=== PATIENT | male | born 1975 | race Two or more races ===

== ENCOUNTER 2016-05-10 23:06 | Emergency (ER) | payer OTHER ==
[2016-05-10] MEDS ORDERED: MAALOX/LIDO2%VISC/SIMETHICONE 40 ML BOT ONE (23:52)
[2016-05-11] MEDS ORDERED: ONDANSETRON 4 MG/2ML 2 ML VIAL ONE ×2 (00:19→01:23)
[2016-05-11 00:25] LABS: ABSOLUTE NEUTROPHIL COUNT 5.6 K/mm3 (1.8-7.7); BASO % 0.4 % (0.2-1.0); EOS # 0.3 (0.0-0.5); EOS % 3.6 % (0.9-2.9); HEMATOCRIT 42.3 % (32.0-52.0); HEMOGLOBIN 14.6 gm/l (14.0-18.0); IMM NEUT% 0.3 % (0-1); LYMPH # 2.8 (1.0-4.8); LYMPH % 29.6 % (15-45); MEAN CELL VOLUME 87.2 fl (80.0-94.0); MEAN CORPUSCULAR HEMOGLOBIN 30.1 pg (27.0-31.0); MEAN CORPUSCULAR HGB CONC 34.5 g/dl (33.0-37.0); MEAN PLATELET VOLUME 9.1 fl (7.4-10.4); MONO # 0.6 (0.0-0.8); MONO % 6.6 % (4-12); NEUT % 59.5 % (43-75); PLATELET COUNT 302 K/mm3 (130-400); RED CELL DISTRIBUTION WIDTH 11.8 % (11.5-14.5)
[2016-05-11 00:38] LABS: ALB/GLOB RATIO 1.3 (>1.0); ALBUMIN 4.1 gm/dL (3.5-5.7); CALCIUM 9.4 mg/dL (8.6-10.3)
[2016-05-11] MEDS ORDERED: HYDROMORPHONE HCL 1 MG/ML SYRINGE ONE (00:43)
[2016-05-11] MEDS ORDERED: LACTATED RINGERS 1,000 ML ONE (00:49)
[2016-05-11] MEDS ORDERED: HYDROMORPHONE HCL 0.5 MG/0.5 ML SYRINGE ONE ×2 (01:23→01:54)
[2016-05-11] MEDS ORDERED: KETOROLAC TROMETHAMINE 30 MG/ML 1 ML VIAL ONE (01:57)
--- NOTE | 2016-05-11 07:51 | US ---
EXAMINATION: Limited gallbladder ultrasound examination was performed. CLINICAL INDICATION: Right upper quadrant pain. COMPARISON: Abdomen ultrasound dated 11/05/2009 FINDINGS: In the visualized segments the liver there is fatty infiltration with relative sparing adjacent to the gallbladder. Gallbladder: 8.2 cm in length. Cholelithiasis: Noted. There are 2 mobile stones largest measures 2.2 cm in diameter. Gallbladder wall thickness: 1 millimeters. Pericholecystic fluid: Absent Common bile duct:Not dilated and measures 5.5 millimeters. Sonographic Erazo's sign: Elicited. IMPRESSION: 1. Cholelithiasis currently without evidence of gallbladder wall thickening or edema. Please note a sonographic Erazo sign was elicited. Continued clinical evaluation and follow-up should be considered. 2. Fatty infiltration liver. Findings were communicated by [facility] to the emergency department at: 1:57 AM 05/11/2016
== END 2016-05-11 03:06 | disposition home or self-care (01) ==
LOC: ED 23:06
DX: K80.20 Calculus of gallbladder without cholecystitis without obstruction (principal)
CPT/HCPCS: 83690; 85025; 80053; 76705; 93005; J1170 ×3; A9270; J1885; J2405; J7120

== ENCOUNTER 2016-05-14 13:09 | Day surgery (SDC) | payer OTHER ==
[~2016-05-14 13:09] MED LIST: IV START KIT ONE; LACTATED RINGERS 1,000 ML ONE
[2016-05-14] MEDS ORDERED: IOPAMIDOL 370 (76%) 100 ML VIAL IV ONE (13:10)
[2016-05-14] MEDS ORDERED: SODIUM CHLORIDE 0.9% 50 ML ONE (13:11)
[2016-05-14] MEDS ORDERED: IOPAMIDOL 300 (61%) 30 ML SDV ONE (13:11)
[2016-05-14] MEDS ORDERED: LIDOCAINE 1%/EPI 1:100,000 (MULTI DOSE) 30 ML VIAL ONE (13:11)
[2016-05-14] MEDS ORDERED: ROCURONIUM BROMIDE 10 MG/ML DOSE IV ONE (13:14)
[2016-05-14] MEDS ORDERED: LIDOCAINE 2% (MULTI DOSE) 10 ML VIAL ONE (13:14)
[2016-05-14] MEDS ORDERED: SUCCINYLCHOLINE CHL 20 MG/ML DOSE ONE (13:14)
[2016-05-14] MEDS ORDERED: FENTANYL 250 MCG/5 ML AMP ONE (13:14)
[2016-05-14] MEDS ORDERED: DEXAMETHASONE SOD PHOS 4 MG/1 ML VIAL ONE (13:14)
[2016-05-14] MEDS ORDERED: PROPOFOL 20 ML IV ONE ×2 (13:14→13:15)
[2016-05-14] MEDS ORDERED: ONDANSETRON 4 MG/2ML 2 ML VIAL ONE (13:14)
[2016-05-14] MEDS ORDERED: PHENYLEPHRINE 10 MG/1 ML (1%) VIAL ONE (13:16)
[2016-05-14] MEDS ORDERED: SODIUM CHLORIDE 0.9% FLUSH 10 ML ONE ×3 (13:17→21:49)
[2016-05-14] MEDS ORDERED: MIDAZOLAM HCL 1 MG/ML 2ML VIAL ONE (13:24)
[2016-05-14] MEDS ORDERED: LACTATED RINGERS 1,000 ML IV SCH ×2 (13:49→15:00)
[2016-05-14] MEDS ORDERED: LIDOCAINE 1% 2 ML VIAL ID PRN (13:49)
[2016-05-14] MEDS ORDERED: METRONIDAZOLE 500 MG/NS 100 ML 500 MG in Premix (NS) 100 ml 1 EACH IV PRN (13:49)
[2016-05-14] MEDS ORDERED: CEFUROXIME SODIUM 1.5 GRAM 1.5 G in Premix (Water) 50 ml 1 EACH IV PRN (13:49)
[2016-05-14] MEDS ORDERED: METRONIDAZOLE 500 MG/NS 100 ML 100 ML IV ONE (13:53)
[2016-05-14] MEDS ORDERED: CEFUROXIME SODIUM 1.5 GRAM 50 ML IV ONE (13:54)
[2016-05-14] MEDS ORDERED: HYDROMORPHONE HCL 2 MG/ML SYRINGE ONE (14:47)
[2016-05-14] MEDS ORDERED: ATROPINE SULFATE 0.4 MG/1 ML VIAL IV PRN (14:55)
[2016-05-14] MEDS ORDERED: LABETALOL HCL 5 MG/ML 20ML VIAL IV PRN (14:55)
[2016-05-14] MEDS ORDERED: ONDANSETRON 4 MG/2ML 2 ML VIAL IV PRN ×2 (14:55→16:08)
[2016-05-14] MEDS ORDERED: HYDROMORPHONE HCL 1 MG/ML SYRINGE IV PRN (14:55)
[2016-05-14] MEDS ORDERED: HYDRALAZINE HCL 20 MG/1 ML VIAL IV PRN (14:55)
[2016-05-14] MEDS ORDERED: PROMETHAZINE HCL 25 MG/ML VIAL IM PRN (14:55)
[2016-05-14] MEDS ORDERED: MEPERIDINE 25 MG/ML SYRINGE IV PRN (14:55)
[2016-05-14] MEDS ORDERED: NALOXONE HCL 0.4 MG/ML VIAL IV PRN (14:55)
[2016-05-14] MEDS ORDERED: GLYCOPYRROLATE 0.2 MG/ML 1ML VIAL ONE ×2 (14:59→15:00)
[2016-05-14] MEDS ORDERED: NEOSTIGMINE METHYLSULFATE 1 MG/ML DOSE ONE (14:59)
--- NOTE | 2016-05-14 15:28 | PCMON ---
Date of Procedure: 05/14/16 Start Time: PREOPERATIVE DIAGNOSIS acute cholecystitis with cholelithiasis w/o obstruction. POSTOPERATIVE DIAGNOSIS same. PROCEDURE PERFORMED Laparoscopic cholecystectomy. COMPLICATIONS None. OPERATIVE FINDINGS cystic duct too small for cholangiocath to fit. ESTIMATED BLOOD LOSS 10 mL. DESCRIPTION OF PROCEDURE The patient was brought to the operating room and placed supine on the operating room table. A surgical briefing was held to verify the correct patient and correct procedure. A general anesthetic was induced uneventfully, followed by the administration of a subcutaneous heparin injection and perioperative antibiotics. Pneumatic compression stockings were placed on the legs and powered on. The abdomen was prepped and draped in a sterile fashion. A 5-mm direct optical view trocar was used to enter the right upper quadrant under direct vision of the abdominal wall layers. Once inside the abdominal cavity, a pneumoperitoneum was created. No injury to underlying structures occurred with placement of this trocar. Once inside the abdominal cavity, an additional 11-mm port was placed in the upper midline just below the xiphisternum. An additional 5-mm port was placed in the supraumbilical position , and a 5-mm port was placed in the right lateral position. All trocars were placed under direct visualization. There was no injury to underlying structures with placement of these trocars. Once inside the abdominal cavity and the pneumoperitoneum was created, the gallbladder was retracted over the liver. We were able to identify inflammation around the gallbladder. The gallbladder was then grasped by Jh pouch and retracted up away from the common bile duct. The dissection was initiated on the medial border of the gallbladder in the region of Calot triangle. We identified the lymph node of Calot which was not removed during the dissection. We continued our dissection, mobilizing lymph node off the cystic artery. As the triangle was developed, the cystic duct was identified. An intraoperative cholangiogram was attempted, but the duct was too small for the catheter to even fit in it. The cystic duct and artery were both identified and exposed. A critical view of safety was obtained by clearing all the tissue between the underside of the infundibulum and the liver so the cystic duct and the artery could be clearly seen going into the gallbladder. The triangle of Calot had no aberrant structures or additional anatomy present within the triangle between the liver bed, the cystic duct and the region of the gallbladder. Once the critical view was demonstrated and there was no evidence of additional structures, we turned our attention to clipping the cystic artery and duct. The cystic artery was clipped twice proximally, once distally and transected. This was confirmed as the artery with pulsatile beating in the region of the clips once transected. Once the artery was taken, we turned our attention to clipping the cystic duct. The cystic duct was clipped with 2 to 3 clips proximally and once distally. This was then transected, and we then removed the gallbladder from the gallbladder bed. No injury to the underlying liver occurred with removal of the gallbladder, there was no evidence of bile leak or bile duct injury, and the gallbladder was not perforated with no spillage of stones prior to removal. The gallbladder was then placed in an Endocatch bag and removed through the 11-mm trocar. Once the trocar was removed we closed the 11mm port site with the Tommy Bernardo and a 0 Vicryl. The pneumoperitoneum was released, and the trocars were removed under direct visualization. The skin had a little oozing that was taken care of by cautery. Than the skin incisions were closed with 4-0 monocryl. The patient was awakened and returned to recovery in stable condition. All needle instrument and sponge counts were correct at the end of the case.
[2016-05-14] MEDS ORDERED: FENTANYL 100 MCG/2 ML VIAL ONE (15:39)
[2016-05-14] MEDS: FENTANYL 100 MCG/2 ML VIAL IV PRN ×2 (15:42→15:52)
[2016-05-14] MEDS ORDERED: HYDROMORPHONE HCL 1 MG/ML SYRINGE ONE (15:53)
[2016-05-14] MEDS ORDERED: HYDROMORPHONE HCL 0.5 MG/0.5 ML SYRINGE ONE ×4 (16:27→18:17)
[2016-05-14] MEDS: HYDROMORPHONE HCL 1 MG/ML SYRINGE IV PRN ×5 (16:29→19:36)
[2016-05-14] MEDS ORDERED: OXYCODONE/ACETAMINOPHEN 5/325 MG TABLET ONE (16:30)
[2016-05-14] MEDS: OXYCODONE/ACETAMINOPHEN 5/325 MG TABLET PO PRN ×2 (16:31→20:41)
[2016-05-14] MEDS ORDERED: PROMETHAZINE HCL 25 MG/ML VIAL IM ONE (17:05)
[2016-05-14] MEDS ORDERED: KETOROLAC TROMETHAMINE 30 MG/ML 1 ML VIAL IV ONE (17:24)
[2016-05-14] MEDS ORDERED: GABAPENTIN 600 MG TABLET PO ONE (17:24)
[2016-05-14] MEDS ORDERED: IV START KIT ONE (18:14)
[2016-05-14] MEDS ORDERED: LACTATED RINGERS 1,000 ML ONE (18:23)
--- NOTE | 2016-05-14 18:51 | CT ---
EXAMINATION: Contrast enhanced CT scan of the abdomen and pelvis. CLINICAL INDICATION: Increasing abdominal pain following laparoscopic cholecystectomy. COMPARISON: Prior CT scan dated 01/24/2015. TECHNIQUE: Oral contrast: None Following uneventful administration of 100 mL of Isovue 370, intravenously axial images were acquired from just above the domes of the diaphragm to the iliac crest. A CT scan of the pelvis was also obtained from the iliac crest to the initial tuberosities. Stacked axial, sagittal, and coronal images were reviewed. Findings: Abdomen CT: (Contrast-enhanced): There is bibasilar atelectasis. The heart size is normal. There is no pericardial effusion. Liver exhibits diffuse diminished attenuation compatible with fatty infiltration. Patient status post cholecystectomy. There is no evidence of biliary obstruction. Gas is noted within the subcutaneous fat and within the intra-abdominal aspect compatible to recent laparoscopy. The spleen size and attenuation are within normal limits. The pancreas is normal in size and contours. No inflammatory stranding is identified. The pancreatic duct is unremarkable. The adrenals are unremarkable. Kidneys are without solid mass or hydronephrosis. There are nonobstructing calculi in the left kidney numbering 3 views or 3 mm size in the upper pole and a single one in the lower pole. There is a lower pole right renal calculus also proximal main 3 mm size. No hydronephrosis or hydroureter is identified. No ureteral calculus is seen. The abdominal aorta unremarkable. There is no retroperitoneal adenopathy identified. The stomach is unremarkable. The visualized segments of small and large bowel are within normal limits. The osseous structures exhibit no displaced fracture. No lytic or blastic lesions are identified. Pelvic CT: (Contrast -enhanced): The distal ureters and bladder are unremarkable. The prostate is normal in size. No adenopathy is identified. The distal abdominal aorta and iliac vessels are within normal limits. There is diverticulosis of the colon without evidence of acute diverticulitis. Small bowel is unremarkable. Free intraperitoneal air is noted. The appendix is unremarkable. No displaced fractures are identified. There are no gross osteolytic or blastic lesions. The overlying soft tissues are unremarkable. IMPRESSION: 1. No evidence of acute inflammatory intra-abdominal or intrapelvic process. No free fluid is seen. 2. There is free intraperitoneal air compatible to recent laparoscopy. 3. Fatty infiltration liver. 4. Bibasilar atelectasis. 5. Diverticulosis without evidence of acute arthritis. Findings were discussed with Dr. Last at 6:46 PM 05/14/2016
[2016-05-14] MEDS ORDERED: SODIUM CHLORIDE 0.9% FLUSH 20 ML ONE (19:32)
[2016-05-14] MEDS: SODIUM CHLORIDE 0.9% 1,000 ML IV SCH (19:51)
[2016-05-14] MEDS ORDERED: TAMSULOSIN HCL 0.4 MG CAPSULE.DR PO ONE (21:28)
[2016-05-15] MEDS: SODIUM CHLORIDE 0.9% 1,000 ML IV SCH (00:24)
[2016-05-15] MEDS: OXYCODONE/ACETAMINOPHEN 5/325 MG TABLET PO PRN ×3 (00:51→09:17)
[2016-05-15] MEDS ORDERED: SODIUM CHLORIDE 0.9% FLUSH 20 ML ONE ×3 (00:54→09:07)
[2016-05-15] MEDS: HYDROMORPHONE HCL 1 MG/ML SYRINGE IV PRN ×3 (00:57→09:17)
[2016-05-15 04:36] VITALS: BMI 32.3
[2016-05-15] MEDS ORDERED: PANTOPRAZOLE 40 MG TABLET DR PO SCH (07:45)
[2016-05-15 08:49] VITALS: BP 126/77
--- NOTE | 2016-05-21 09:59 | SURGPATH ---
[facility] [address] [place] [id number] Patient Name: ZANE LOPEZ MR#: [id number] : 1975 Gender: M Specimen #: [id number] Collected: 05/14/2016 Received: 05/20/2016 Reported: 05/21/2016 Submitting Phys: JANICE ELLIOTT Copy To Phys: [facility] Clinical History / Pre-Operative Diagnosis: CHOLECYSTITIS; CHOLELITHIASIS Specimen Source / Surgical Procedure Performed: GALLBLADDER Interpretation: GALLBLADDER, CHOLECYSTECTOMY: - CHRONIC CHOLECYSTITIS. CHOLELITHIASIS. Electronically Signed Out Gerhard Perea M.D. Gross Description: The specimen is received in a formalin filled container labeled with the patient's name and "gallbladder". An incised gallbladder is 6.5 x 2.5 cm. The serosa is smooth and pink. The wall averages 0.4 cm. The mucosa is angeles and velvety with scattered raised yellow flecks. There is no nodule or induration. Within the lumen are three nodular yellow angeles calculi up to 1.7 cm. Photo Print Specialist in one cassette Maritza Ford Microscopic Description: Microscopic performed. 1: 06472 K80.80
== END 2016-05-15 09:45 | disposition home or self-care (01) ==
LOC: MS 13:09 → SDC 13:09 → MS 19:17 → SDC 05-15 09:45
PROVIDERS: ATTEND Surgery
PROC: 0FT44ZZ Resection of Gallbladder, Percutaneous Endoscopic Approach (ICD-10-PCS; principal; 2016-05-14)
PROC: BF101ZZ Fluoroscopy of Bile Ducts using Low Osmolar Contrast (ICD-10-PCS; 2016-05-14)
DX: K80.12 Calculus of gallbladder with acute and chronic cholecystitis without obstruction (principal); K21.9 Gastro-esophageal reflux disease without esophagitis; E78.5 Hyperlipidemia, unspecified; M54.9 Dorsalgia, unspecified; R05 Cough; K64.9 Unspecified hemorrhoids; K61.1 Rectal abscess; Z88.5 Allergy status to narcotic agent; Z72.0 Tobacco use
CPT/HCPCS: 47563; 74177; J1170 ×10; J3010 ×2; J1100; J2370; A9270 ×6; J2550; J1885; J2250; J2001 ×2; J2405; J7120 ×2; J7030; J0697; Q9967 ×2

== ENCOUNTER 2016-05-16 12:30 | Emergency (ER) | payer OTHER ==
[2016-05-16] MEDS ORDERED: IOPAMIDOL 370 (76%) 100 ML VIAL IV ONE (12:31)
[2016-05-16 13:05] LABS: ABSOLUTE NEUTROPHIL COUNT 6.2 K/mm3 (1.8-7.7); BASO % 0.3 % (0.2-1.0); EOS # 0.3 (0.0-0.5); EOS % 3.2 % (0.9-2.9); HEMATOCRIT 40.7 % (32.0-52.0); HEMOGLOBIN 13.3 gm/l (14.0-18.0); IMM NEUT% 0.4 % (0-1); LYMPH # 2.7 (1.0-4.8); LYMPH % 26.6 % (15-45); MEAN CELL VOLUME 91.5 fl (80.0-94.0); MEAN CORPUSCULAR HEMOGLOBIN 29.9 pg (27.0-31.0); MEAN CORPUSCULAR HGB CONC 32.7 g/dl (33.0-37.0); MEAN PLATELET VOLUME 9.4 fl (7.4-10.4); MONO # 0.8 (0.0-0.8); MONO % 8.1 % (4-12); NEUT % 61.4 % (43-75); PLATELET COUNT 259 K/mm3 (130-400); RED CELL DISTRIBUTION WIDTH 12.1 % (11.5-14.5)
[2016-05-16 13:16] LABS: ALB/GLOB RATIO 1.2 (>1.0); ALBUMIN 3.7 gm/dL (3.5-5.7); CALCIUM 8.9 mg/dL (8.6-10.3)
[2016-05-16] MEDS ORDERED: KETOROLAC TROMETHAMINE 30 MG/ML 1 ML VIAL ONE (13:17)
[2016-05-16 13:18] LABS: TROPONIN I < 0.01 ng/ml (0.0-0.06)
[2016-05-16 13:22] LABS: CKMB ISOENZYME 1.1 ng/ml (0.6-6.3)
--- NOTE | 2016-05-16 14:08 | US ---
Name: ZANE LOPEZ Exam: Venous ultrasound left leg Comparison: None Clinical history: During left posterior knee pain Findings:Deep veins of the left leg were evaluated with ultrasound using real-time, color flow doppler and doppler analysis. Deep veins are compressible. There is no echogenic intraluminal filling defect. Blood flow responds appropriately to respiratory variation and augmentation on color doppler and spectral analysis. There is no suspicious fluid collection or mass. Impression: No ultrasound evidence for DVT left leg Note: The above report was uploaded to [facility]'s electronic medical records system at 1404 hours.
--- NOTE | 2016-05-16 14:10 | RAD ---
Name: ZANE LOPEZ Exam: Two-view chest Comparison: 05/04/2016 Clinical history: Left-sided chest and arm pain with abdominal pain. Recent cholecystectomy. Findings: 3 radiographs of the chest are submitted. Heart, mediastinum and hilar structures are normal. There is minimal bibasilar atelectasis. There is no pleural effusion or pneumothorax. Gallbladder surgically absent. Regional skeleton is unremarkable. Impression: 1. Hypoventilatory exam with mild bibasilar atelectasis. 2. Prior cholecystectomy
--- NOTE | 2016-05-16 14:49 | CT ---
Name: ZANE LOPEZ Exam: CT Angiogram of the chest with contrast Comparison: None Clinical History:Left-sided chest and arm pain. Recent cholecystectomy. Procedure: Helical CT using multidetector technique was applied to the chest during rapid intravenous administration of 80 cc Isovue-370. MIP reconstructions were obtained on the CT scanner. Automated dose reduction technique was used to minimize patient radiation dose. Findings: CT angiogram of the chest (contrast enhanced): Heart is prominent however this is a low volume exam. There is no pericardial effusion. Aorta is normal caliber. There is common origin for the innominate artery and left common carotid artery which is a normal variant. Injection was made via the right. Limited views of thyroid gland are normal. There is no suspicious axillary or mediastinal adenopathy. There is small amount of hilar lymph tissue bilaterally. Timing of the exam is less than desirable however visualized pulmonary arteries show no evidence for embolus. There is mild, left greater than right, bibasilar streaky density. Atelectasis is favored. Infiltrate is not excluded. In the right lower lobe, there is a 6 mm rounded noncalcified pulmonary nodule. If this person is increased risk for developing lung cancer, repeat CT chest in 6 months is recommended. If not, repeat in one year is recommended. There is no significant effusion and no pneumothorax. Regional skeleton is within normal limits. Fatty changes of liver are identified. There is been recent gallbladder removal. Other structures below the diaphragm included on this exam are within normal limits. Impression: 1. Limited opacification of the pulmonary arteries due to timing. There is no obvious pulmonary embolus 2. Mild, left greater than right, bibasilar atelectasis. Infiltrate is thought less likely 3. 6 mm right lower lobe pulmonary nodule. Please see above comments 4. Recent cholecystectomy Note:The above report was uploaded to [facility]'s electronic medical records system at 1445 hours.
[2016-05-16] MEDS ORDERED: CLONAZEPAM 0.5 MG TABLET PO ONE (16:00)
== END 2016-05-16 15:53 | disposition home or self-care (01) ==
LOC: ED 12:30
DX: R07.9 Chest pain, unspecified (principal); M79.605 Pain in left leg; K21.9 Gastro-esophageal reflux disease without esophagitis
CPT/HCPCS: 83690; 85025; 82553; 80053; 84484 ×2; 71020; 71275; 99284 ×2; 96374; 93005 ×2; 93971; J1885; A9270; Q9967

== ENCOUNTER 2016-06-04 07:23 | Emergency (ER) | payer OTHER ==
[2016-06-04] MEDS ORDERED: IOPAMIDOL 370 (76%) 100 ML VIAL IV ONE (07:24)
[2016-06-04] MEDS ORDERED: MAALOX/LIDO2%VISC/SIMETHICONE 40 ML BOT ONE (08:01)
[2016-06-04] MEDS ORDERED: ONDANSETRON 4 MG/2ML 2 ML VIAL ONE (08:01)
[2016-06-04] MEDS ORDERED: SODIUM CHLORIDE 0.9% 1,000 ML ONE (08:01)
[2016-06-04] MEDS ORDERED: FAMOTIDINE 10 MG/ML 2ML VIAL ONE (08:02)
[2016-06-04] MEDS ORDERED: ACETAMINOPHEN 500 MG TABLET ONE (08:02)
[2016-06-04 08:36] LABS: TROPONIN I < 0.01 ng/ml (0.0-0.06)
[2016-06-04 08:37] LABS: ALB/GLOB RATIO 1.3 (>1.0); ALBUMIN 3.9 gm/dL (3.5-5.7); CALCIUM 9.1 mg/dL (8.6-10.3)
[2016-06-04 08:39] LABS: CKMB ISOENZYME 0.9 ng/ml (0.6-6.3)
[2016-06-04 08:45] LABS: ABSOLUTE NEUTROPHIL COUNT 9.2 K/mm3 (1.8-7.7); BASO % 0.3 % (0.2-1.0); EOS # 0.5 (0.0-0.5); EOS % 4.4 % (0.9-2.9); HEMATOCRIT 40.2 % (32.0-52.0); HEMOGLOBIN 13.4 gm/l (14.0-18.0); IMM NEUT% 0.3 % (0-1); LYMPH # 1.3 (1.0-4.8); LYMPH % 11.3 % (15-45); MEAN CELL VOLUME 88.7 fl (80.0-94.0); MEAN CORPUSCULAR HEMOGLOBIN 29.6 pg (27.0-31.0); MEAN CORPUSCULAR HGB CONC 33.3 g/dl (33.0-37.0); MEAN PLATELET VOLUME 9.5 fl (7.4-10.4); MONO # 0.6 (0.0-0.8); MONO % 5.4 % (4-12); NEUT % 78.3 % (43-75); PLATELET COUNT 315 K/mm3 (130-400); RED CELL DISTRIBUTION WIDTH 11.9 % (11.5-14.5)
--- NOTE | 2016-06-04 09:14 | RAD ---
CHEST - 2 VIEWS COMPARISON: Chest 2 views, 05/16/2016 HISTORY: Left arm pain. Upper abdomen pain. Gallbladder removed 3 weeks ago. FINDINGS: Views: Frontal and lateral chest Lungs: Normal Heart and vessels: Normal Trachea and bronchi: Normal Mediastinum and johanne: Normal Costophrenic sulci: Normal Chest wall and bones: Normal. Upper abdomen: Cholecystectomy clips in the right upper quadrant. No free air. IMPRESSION: Negative 2 view chest.
[2016-06-04 09:17] LABS: URINE BILIRUBIN NEGATIVE (NEGATIVE); URINE BLOOD NEGATIVE (NEGATIVE); URINE GLUCOSE (UA) NEGATIVE (NEGATIVE); URINE LEUKOCYTE ESTERASE NEGATIVE (NEGATIVE); URINE NITRITE NEGATIVE (NEGATIVE); URINE PROTEIN NEGATIVE (NEGATIVE); URINE UROBILINOGEN NORMAL (0-1 mg/dl)
[2016-06-04 09:19] LABS: URINE APPEARANCE CLEAR; URINE COLOR YELLOW
--- NOTE | 2016-06-04 10:16 | CT ---
INDICATION: Chest and abdominal pain. Elevated d-dimer. Patient status post cholecystectomy 3 weeks ago. COMPARISON: CTA chest 05/16/2016 TECHNIQUE: Helical scan mode CT of the Thorax with 2 mm collimated images were obtained after uneventful intravenous contrast administration of 100 mL of Isovue-370. Sagittal and coronal reformations with high resolution lung algorithm images were also created at this time. Maximal intensity projection images and 3-D volumetric sequences were created at a separate, dedicated workstation. DLP: 977.1 FINDINGS: There are no pulmonary arterial filling defects. Dependent and atelectatic changes are noted at the lung bases. The area of more focal atelectasis as seen on prior exam is no longer present. The patient's 6 mm pulmonary nodule within the right lower lobe is again identified on axial image 46. A second nodule is seen at the left base within the costophrenic sulcus on image 69 measuring 5 mm. No other definite nodules are present. No pleural effusion. The central airways are widely patent. There is no axillary, mediastinal or hilar adenopathy. The heart and great vessels opacify normally. Limited evaluation of the upper abdomen demonstrates no gross abnormalities. Postsurgical change from recent cholecystectomy. Review of bone windows demonstrates no osteoblastic or lytic lesions. IMPRESSION: 1. Negative for pulmonary embolism. 2. Stable appearance to the 6 mm nodule within the right lower lobe. 5 mm nodule is present at the left posterior base. Please see recommendations from prior examination regarding follow-up. 3. Recent postsurgical change from cholecystectomy. Findings were called to Dr. Markham at approximately 1011 hours on 06/04/2016.
[2016-06-04] MEDS ORDERED: OXYCODONE/ACETAMINOPHEN 5/325 MG TABLET ONE (10:25)
== END 2016-06-04 10:38 | disposition home or self-care (01) ==
LOC: ED 07:23
DX: R10.13 Epigastric pain (principal); R07.9 Chest pain, unspecified; K21.9 Gastro-esophageal reflux disease without esophagitis
CPT/HCPCS: 83690; 85379; 82150; 85025; 82550; 82553; 80053; 81003; 84484; 71020; 71275; 96375; 99284 ×2; 96374; A9270 ×3; J2405; J7030; Q9967